=== PATIENT | female | born 1980 | race Caucasian/White ===

== ENCOUNTER 2019-11-05 08:37 | Day surgery (SDC) | payer BC ==
[~2019-11-05] VITALS: Ht 174 cm; Wt 83.3 kg
[~2019-11-05 08:37] MED LIST: BENADRYL25 M2 PO; BRET2.5 PO; CLARITIN; FIBER TABLETS1 TAB PO; NIFEDIPINE PO; PRENATAL1 TA1 PO; PROCARDIA XL 3030 MG PO; STOOL SOFTENER100 MG PO; SUDAFED 12 HOU120 MG PO
[2019-11-05 09:22] VITALS: BP 100/48; PULSE 46; TEMP 97.1
[2019-11-05] MEDS ORDERED: CEPHALEXIN500 M1 PO (09:27)
[2019-11-05] MEDS ORDERED: ANIMAL SHAPES +1 CTB PO (09:30)
[2019-11-05] MEDS ORDERED: IBU600 MG PO (12:34)
[2019-11-05] MEDS ORDERED: PERCOCET 325 MG1 TA2 PO (12:34)
[2019-11-05 12:45] VITALS: BP 112/61; PULSE 48; TEMP 97.5
--- NOTE | 2019-11-05 12:45 | NUR ---
Pt to [facility] via cart from PACU. Pt drowsy, but awake. Pt rates abdominal pain at 3/10. Denies nausea. VSS. Laparoscopic sites to abdomen x4 are clean and dry with [place] set intact. Will continue to monitor. Call light within reach.
[2019-11-05 13:00] VITALS: BP 111/61; PULSE 44
--- NOTE | 2019-11-05 13:00 | NUR ---
Pt continues to rest. Dozing on and off. Denies needs. Call light within reach.
[2019-11-05 13:15] VITALS: BP 110/60; PULSE 45
--- NOTE | 2019-11-05 13:15 | NUR ---
Pt continues to rest. Denies needs. Call light within reach.
[2019-11-05 13:30] VITALS: BP 113/61; PULSE 44
--- NOTE | 2019-11-05 13:30 | NUR ---
Pt continues to dose on and off. Denies needs. Call light within reach.
[2019-11-05 14:00] VITALS: BP 118/60; PULSE 46
--- NOTE | 2019-11-05 14:00 | NUR ---
Pt more awake. Visiting with friend and on cell phone. Pt states "the pain is starting to come back." Jello given per pt request. Will provide pain medication.
--- NOTE | 2019-11-05 14:45 | NUR ---
Pt up to restroom with stand by assistance. Gait steady. Pt voids without difficulties. Pt back to room. Pt dressing with assistance from her mother. Call light within reach.
--- NOTE | 2019-11-05 15:10 | NUR ---
Discharge instructions reviewed. Pt voices understanding. IV site discontinued with all parts intact. Pt escorted to private car via wheel chair. Pt accompanied home by her mother.
== END 2019-11-05 15:10 | disposition home or self-care (01) ==
LOC: SDCO 08:37
DX: K80.10 Calculus of gallbladder with chronic cholecystitis without obstruction (principal); E66.9 Obesity, unspecified; Z68.27 Body mass index [BMI] 27.0-27.9, adult; Z98.84 Bariatric surgery status; Z98.51 Tubal ligation status; Z87.891 Personal history of nicotine dependence; Z79.899 Other long term (current) drug therapy
CPT/HCPCS: J0330; J0690; J2405; J2704; J3010; J7120; Q9967